=== PATIENT | female | born 1990 | race Asian ===

== ENCOUNTER 2025-08-11 17:52 | Emergency (ER) | payer OTHER ==
[~2025-08-11] VITALS: Ht 160 cm; Wt 72.6 kg
[2025-08-11 18:06] VITALS: BP 113/74; TEMP 98.2; O2SAT 99
[2025-08-11 18:21] LABS: PLATELET COUNT (AUTO) 289 K/uL (150-450); RED BLOOD CELL COUNT(AUTO) 4.47 MIL/uL (4.0-5.2); RED CELL DISTRIBUTION WIDTH 12.9 % (11.5-15.0); WHITE BLOOD COUNT (AUTO) 11.7 K/uL (4.3-11.0)
[2025-08-11 18:27] LABS: APPEARANCE,URINE CLEAR (CLEAR); BLOOD, URINE Moderate Ery/uL (NEGATIVE); LEUKOCYTE ESTERASE ,URINE Trace (NEGATIVE); NITRITE, URINE NEGATIVE (NEGATIVE); UGLUCOSE Negative (NEGATIVE)
[2025-08-11 18:29] LABS: PREGNANCY TEST URINE QUAL NEGATIVE (NEGATIVE)
[2025-08-11 18:29] LABS: CALCIUM, SERUM 9.0 mg/dL (8.5-10.1); CREATININE 0.8 mg/dL (0.6-1.3); SODIUM SERUM 134.0 mmol/L (136-145); UREA NITROGEN, BLOOD 13.0 mg/dL (7-18)
[2025-08-11 18:33] LABS: INR 0.95 (0.91-1.10)
[2025-08-11 18:35] LABS: ASPARTATE AMINOTRANSFERASE 37.0 U/L (15-37); TOTAL PROTEIN, SERUM 8.3 g/dL (6.4-8.2)
[2025-08-11 18:37] LABS: ADD URINE CULTURE NO; SQUAMOUS EPITHELIAL CELL,UR 0-2 /HPF (None Seen)
[2025-08-11] MEDS ORDERED: CEPH-570 PO (19:05)
== END 2025-08-11 19:17 | disposition home or self-care (01) ==
LOC: ER 17:55
DX: N30.01 Acute cystitis with hematuria (principal); N89.8 Other specified noninflammatory disorders of vagina
CPT/HCPCS: 36415; 80053-TC; 81001; 84703-TC; 85025-TC; 85730-TC